=== PATIENT | female | born 1945 | race Caucasian/White ===

== ENCOUNTER 2017-05-30 16:17 | Observation (INO) | payer MEDICARE ==
[~2017-05-30] VITALS: Ht 154.9 cm; Wt 83.5 kg
[2017-05-30] MEDS ORDERED: Ondansetron 2 mg/mL 2 mL Inj IVPUSH PRN (17:50)
[2017-05-30] MEDS ORDERED: Polyethylene Glycol (PEG) 17 Gm Powder PO PRN (17:50)
--- NOTE | 2017-05-30 18:11 | PCM.HPMED ---
Subjective Date of Service May 30, 2017 Primary Provider: Admitting Physician: Ethan Lawrence MD Primary Care Physician: Nonstaff,Doctor Attending Physician: Ethan Lawrence MD Admit Status: Direct Admit, 23-Hour Observation, Remote Telemetry Chief Complaint: Left facial numbness. Resolved. History of Present Illness: This is a 71-year-old female with a history of hypertension who developed left- sided facial numbness this afternoon. This began around 1:30 or 2:00. She then had a feeling of fullness in her chest and head. She had no difficulty with weakness of arms or legs. She had no difficulty with slurred speech or difficulty speaking. No change in vision. She has no history of TIA or stroke. She does have a history of hypertension and does take spironolactone for this. She rarely sees the doctor. She presented to the ER because of this persistent left face numbness. CT of the head was negative for stroke or bleed. There were concerned about the possibility of a TIA, presumably thalamic. The requested transfer by ambulance to [facility] for further evaluation with MRI. 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 She states that this is improved. No history of atrial fibrillation. She smokes cigarettes distantly but none in the last 20 years. She feels like her symptoms have mostly resolved at this point. She was given aspirin in [place] at the emergency department. No difficulty with walking. Review of Systems: She denies any hematuria, or blood in the stools. All else reviewed and otherwise non contributory except as noted in the history of present illness. Home Medications Spironolactone. PMH 1. Essential hypertension 2. Cervical cancer 3. Small bowel obstruction. Surgical History Hysterectomy Family History Hypertension Social History Occupation: Works retail Hx Alcohol Use: No Hx Substance Use: No Hx Tobacco Use: Yes Smoking Status: Former Smoker Living Arrangement: with Family Exam Vital Signs VSS Exam Alert and oriented times 3, fluent speech. Normal skull Normal cranial nerves. No facial droop. No facial numbness. Normal neck, normal nodes. Lungs clear with normal effort and rate Heart regular rate and without murmur. Abdomen soft, non tender. No leg edema No skin rash Normal motor strength in arms and legs, no drift. Normal joints. She has no petechiae or ecchymosis. Lab and Diagnostics Labs pending Assessment & Plan 1. Possible TIA with transient left facial numbness, resolved. Will perform MRI/ MRA brain, ECG, and ECHO with bubble. 2. Essential hypertension, present on admission. Stable. Usual medications and follow clinically. She is admitted observation status, with estimated length of stay of one night. She is full code. Pain Evaluation: Adequate Pain Control Resuscitation Status: CPR: Attempt Resuscitation Time spent 35 minutes Ethan Lawrence MD May 30, 2017 18:11
[2017-05-30 18:24] VITALS: BP 166/106; PULSE 80; RESP 18; O2SAT 98
[2017-05-30] MEDS ORDERED: ESTR1TAB24 PO (18:31)
[2017-05-30] MEDS ORDERED: SPIR25TA3 PO (18:32)
[2017-05-30] MEDS ORDERED: ESTR-14 PO (18:34)
--- NOTE | 2017-05-30 19:19 | NUR ---
Direct admit patient arrived approx 1750 via [facility]. Report received from ED nurse jamaal wilde. New orders per hospitalist. Med Req Done. NOC nurse aware that admit needs to be done. Report given to night nurse. Swallow screen done by RN and pureed honey thick fluids per assessment. Denies any cardiac or respiratory discomfort. last BM this AM. Ambulation up with assist. per neuro assessment slight numbness to left lip able to move all four extremities. stable mood. call light with in reach. Denies any pain or discomfort. no skin issues noted.
[2017-05-30] MEDS: 0.9% Sodium Chloride 1,000 ML IV SCH (20:11)
[2017-05-30] MEDS: Heparin 5,000 Unit/mL Inj SUBQ SCH (20:12)
[2017-05-30 20:25] VITALS: BP 149/88
[2017-05-30 21:45] VITALS: BP 123/69; PULSE 71; RESP 19; O2SAT 99
[2017-05-30 23:49] LABS: APPEARANCE,URINE CLEAR (CLEAR,HAZY); COLOR,URINE YELLOW (YELLOW); OCCULT BLOOD,URINE NEGATIVE (NEGATIVE); UROBILINOGEN,URINE NORMAL (NORMAL)
[2017-05-31] MEDS: Heparin 5,000 Unit/mL Inj SUBQ SCH ×2 (00:30→08:52)
[2017-05-31 02:36] VITALS: BP 128/64; PULSE 67; RESP 17; O2SAT 96
[2017-05-31 05:19] VITALS: PULSE 67
[2017-05-31] MEDS: 0.9% Sodium Chloride 1,000 ML IV SCH (05:36)
[2017-05-31 05:40] VITALS: BP 107/63; PULSE 66; RESP 17; O2SAT 97
[2017-05-31 06:20] LABS: BASOPHILS % (AUTO) 0.2 % (0-3); EOSINOPHILS % (AUTO) 3.3 % (0-5); MONOCYTES % (AUTO) 8.2 % (4-12); Mean Corpuscular Volume 97.8 fL (81-100); NEUTROPHILS % (AUTO) 62.3 % (40-74); Platelet Count 187 bil/L (150-400)
[2017-05-31 08:00] VITALS: PULSE 69
--- NOTE | 2017-05-31 08:25 | DRSVH ---
PROCEDURE: MRI BRAIN WITH AND WITHOUT CONTRAST ([id number]) INDICATIONS: facial numbess TECHNIQUE: Noncontrast axial T1 spin echo, axial T2 fast spin echo, sagittal and axial FLAIR, coronal T2 fast sp in echo, axial gradient echo, axial diffusion and ADC through the brain. After the administration of contrast, axial and coronal 3D VIBE or T1 spin echo with fat saturation through the brain. COMPARISON: None. FINDINGS: Image quality: Excellent. CSF Spaces: Basal cisterns are patent. No extra-axial fluid collections. Ventricles are normal in size and shape. Brain: No midline shift. No intracranial bleeds or masses. No abnormal intracranial enhancement. The brainstem appears normal. Diffusion-weighted images demonstrate no acute ischemic insults. Minim al scattered foci of increased T2 signal in the subcortical and periventricular white matter consiste nt with chronic ischemic change. Normal intravascular flow voids are present. Skull and face: Calvarial marrow is normal in signal. Orbits appear normal. Sinuses: Sinuses and mastoids appear clear. IMPRESSION: 1. No MRI evidence of acute intracranial pathology. 2. There are no discrepancies with the preliminary report. Dictated by: Shane Hurtado M.D. on 05/31/2017 at 8:19 Approved by: Shane Hurtado M.D. on 05/31/2017 at 8:23
[2017-05-31 08:49] VITALS: BP 139/75; PULSE 57; RESP 16; O2SAT 97
--- NOTE | 2017-05-31 13:19 | NUR ---
Evaluation completed. Please go to "Notes" then click on "Assessments and Notes" (bottom left corner of screen). Then select appropriate discipline tab on top of screen.
[2017-05-31 13:34] VITALS: BP 158/80; PULSE 64; RESP 16; O2SAT 96
--- NOTE | 2017-05-31 16:08 | NUR ---
Social Work: Initial Assessment / Multidisciplinary Rounds Data: See initial assessment. Patient is a 71 year old female who was admitted on 05/30/17 for rule out of CVA per H&P. Patient's insurance is Medicare and her PCP is Dr. Ja Lawson. EMR reviewed. SW met with patient to discuss discharge plan. SW role explained. Patient resides with her spouse at [place]. Patient considers her spouse to be her main source of support. Patient denies having a DPOA but confirms that AD have been completed on her behalf. Patient has declined SW offer for DPOA paperwork. Patient confirms that she drives via [place]. Patient denies a hx of home health services or SNF. Patient denies having [place] care insurance or VA benefits. Patient states that upon discharge she will need a ferry pass to return to [place]. Patient states that she was airlifted to [facility]. SW provided patient with a discharge planning checklist booklet and encouraged her to call with any questions or concerns. Phone number provided. Patient was discussed in morning rounds. No concerns were noted by MD or staff. SW will continue to follow for needs. Assessment: Patient will likely discharge home when medically stable. Plan: Patient will likely discharge home when medically stable. Transportation home will be provided by ferry pass. SW will provided pass to patient after MD signature is obtained. SW will follow for needs. LUZ Monterroso Addendum: 05/31/17 at 1621 by LY CRUZ SS Amended: Links added.
--- NOTE | 2017-05-31 16:38 | PCM.DIMED ---
Discharge Instructions Date of Service May 31, 2017 Dates of Hospitalization May 30, 2017 at 18:01 Discharge Diagnosis Discharge Diagnosis 1. Transient left-sided facial numbness of unclear significance, resolved. 2. Essential hypertension, stable. Diet Discharge Diet: No restrictions Activity Discharge Activity: No restrictions Call your provider Call your provider for: Weakness (unilateral), Other (difficulty speaking, moving arms or legs, facial droop.) Patient Instructions Patient Instructions Please see Dr. Lawson within the next week. I would talk to him about doing an echo of your heart if he feels like he wants to pursue that. Ethan Lawrence MD May 31, 2017 16:38
--- NOTE | 2017-05-31 16:47 | PCM.DC.MED ---
Discharge Summary Date of Service May 31, 2017 Dates of Hospitalization Date of Hospital Admission May 30, 2017 at 18:01 Date of Discharge: May 31, 2017 Providers: Admitting Physician: Ethan Lawrence MD Primary Care Physician: Yudith, Attending Physician: Ethan Lawrence MD Diagnosis at Time of Discharge Diagnosis at Time of Discharge 1. Transient left-sided facial numbness of unclear significance, resolved. 2. Essential hypertension, stable. Consultations None Procedures XRay, CTs & MRIs MRI brain is unremarkable. No evidence of acute stroke. Carotid duplex ultrasound reveals a small left ICA plaque but no significant stenosis. Echo with bubble study was not obtainable during the hospitalization. This will be deferred to outpatient basis. Suspicion for TIA is very low and therefore medically I feel it this can be delayed. ECG 12 Lead NSR Invasive Procedures None Brief History This is a 71-year-old female with a history of hypertension who developed left- sided facial numbness this afternoon. This began around 1:30 or 2:00. She then had a feeling of fullness in her chest and head. She had no difficulty with weakness of arms or legs. She had no difficulty with slurred speech or difficulty speaking. No change in vision. She has no history of TIA or stroke. She does have a history of hypertension and does take spironolactone for this. She rarely sees the doctor. She presented to the ER because of this persistent left face numbness. CT of the head was negative for stroke or bleed. There were concerned about the possibility of a TIA, presumably thalamic. The requested transfer by ambulance to [facility] for further evaluation with MRI. 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 She states that this is improved. No history of atrial fibrillation. She smokes cigarettes distantly but none in the last 20 years. She feels like her symptoms have mostly resolved at this point. She was given aspirin in Saturday at the emergency department. No difficulty with walking. Hospital Course 1. Possible TIA with transient left facial numbness, resolved. Will perform MRI/ MRA brain, ECG, and ECHO with bubble. 2. Essential hypertension, present on admission. Stable. Usual medications and follow clinically. She is admitted observation status, with estimated length of stay of one night. She is full code. Hospital course. This patient had transient left facial numbness. She was sent over from Saturday after negative head CT there. An MRI was negative for evidence of stroke. The patient had no symptoms after arrival at [facility]. A 2-D echo could not be obtained due to lack of availability of service on the day of discharge. The patient had a normal carotid duplex ultrasound with the exception of mild left internal carotid artery plaque but no significant stenosis. She had no other neurologic symptoms. She did have a high component of anxiety on the day that her symptoms occurred. The suspicion for TIA was relatively low after history physical and associated studies. She is felt to be stable for discharge home with referral on the need of a 2-D echo with bubble to her primary care doctor, Dr. Lawson Saturday. She will see Dr. Lawson within the next week and continue to take her blood pressure medications. Exam Vital Signs (Last) Date Time Temp Pulse Resp B/P Pulse Ox O2 Delivery O2 Flow Rate FiO2 05/31/17 13:34 36.8 64 16 158/80 96 Room Air Exam The patient was seen and examined on the day of discharge. She was felt to be medically stable for discharge. Test 05/30/17 23:05 05/31/17 05:20 Urine Color Yellow (YELLOW) Urine Appearance Clear (CLEAR,HAZY) Urine pH 6.0 (5.0-8.0) Urine Specific [place] 1.010 (1.003-1.035) Urine Protein Negativemg/dL (NEG,TRACE) Urine Glucose (UA) Negativemg/dL (NEGATIVE) Urine Ketones Negativemg/dL (NEGATIVE) Urine Occult Blood Negative (NEGATIVE) Urine Nitrite Negative (NEGATIVE) Urine Bilirubin Negative (NEGATIVE) Urine Urobilinogen Normalmg/dL (NORMAL) Urine Leukocyte Esterase Negative (NEGATIVE) Urine RBC 0-2/hpf (0-2) Urine WBC 0-5/hpf (0-5) Urine Epithelial Cells Few/hpf (NONE-MOD) Urine Crystals None seen (NONE SEEN) Urine Bacteria Moderate/hpf (NONE-FEW) Urine Hyaline Casts Occasional/lpf (NONE) Urine Granular Casts None seen (NONE SEEN) Urine Waxy Casts None seen (NONE SEEN) Urine Red Blood Cell Casts None seen (NONE SEEN) Urine White Blood Cell Casts None seen (NONE SEEN) Urine Mucus None seen (None Seen) Urine Trichomonas None seen (NONE SEEN) Urine Yeast None (NONE SEEN) Urinalysis Comment None Urine Culture Reflexed Indicated Hold Urine Received (Received) White Blood Count 4.6th/mm3 (3.8-10.1) Red Blood Count 3.72mil/mm3 (3.90-5.20) Hemoglobin 11.9g/dL (12.0-15.6) Hematocrit 36.4% (35.0-46.0) Mean Corpuscular Volume 97.8fL (81-100) Mean Corpuscular Hemoglobin 32.0pg (27.0-35.0) Mean Corpuscular Hemoglobin Concent 32.7% (32.0-37.0) Red Cell Distribution Width 12.7% (12.3-15.4) Platelet Count 187bil/L (150-400) Neutrophils (%) (Auto) 62.3% (40-74) Lymphocytes (%) (Auto) 26.0% (14-46) Monocytes (%) (Auto) 8.2% (4-12) Eosinophils (%) (Auto) 3.3% (0-5) Basophils (%) (Auto) 0.2% (0-3) Sodium Level 143mEq/L (134-144) Potassium Level 4.5mEq/L (3.5-5.2) Chloride Level 104mEq/L (97-108) Carbon Dioxide Level 27mmol/L (18-29) Blood Urea Nitrogen 13mg/dL (8-27) Creatinine 1.43mg/dL (0.57-1.00) Estimat Glomerular Filtration Rate 52mL/min (>59) Glucose Level 101mg/dL (60-99) Calcium Level 9.0mg/dL (8.5-10.1) Total Bilirubin 0.4mg/dL (0.0-1.2) Aspartate Amino Transf (AST/SGOT) 22U/L (0-50) Alanine Aminotransferase (ALT/SGPT) 12U/L (0-32) Alkaline Phosphatase 43U/L (25-165) Total Protein 6.1g/dL (6.4-8.4) Albumin 3.6g/dL (3.4-5.0) Triglycerides Level 127mg/dL (0-149) Cholesterol Level 179mg/dL (100-199) LDL Cholesterol, Calculated 111.600mg/dL (0-99) VLDL Cholesterol 25.400mg/dL HDL Cholesterol 42mg/dL (>39) Cholesterol/HDL Ratio 4.26 (0.0-4.4) Discharge Medications Discharge Medications Estrogen,Candida/Me-Testosterone (Estrogen-Methyltestos H.s. Tab) 1 Each Tablet 1 EACH PO DAILY (Reported) Spironolactone (Spironolactone) 25 Mg Tablet 25 MG PO QPM (Reported) Followup Plan Disposition: Home Discharge Diet: No restrictions Discharge Activity: No restrictions Patient Instructions Please see Dr. Lawson within the next week. I would talk to him about doing an echo of your heart if he feels like he wants to pursue that. Time spent 30 minutes Ethan Lawrence MD May 31, 2017 16:47
--- NOTE | 2017-05-31 17:02 | NUR ---
Social Work: Screening / Discharge EMR reviewed. Patient has been deemed medically stable for discharge today per MD. Patient will return home with significant other. Transportation will be provided by ferry. Due to patient being airlifted to [facility], patient will be provided with a ferry pass. Patient has no additional needs at this time. LUZ Monterroso
--- NOTE | 2017-05-31 17:37 | NUR ---
Discharge Pt. discharged to home at 1710 in stable condition. Pt.s is driving. Pt. walking w/ steady gait. Pt. has ferry pass and all instructions/belongings. Tele and IV dc'd prior to discharge. No questions or concerns at this time.
--- NOTE | 2017-06-02 17:13 | DRSVH ---
PROCEDURE: US BILATERAL DUPLEX DOPPLER IMAGING OF THE CAROTIDS ([id number]) INDICATIONS: facial numbness TECHNIQUE: Color and pulse Doppler interrogation was performed of both carotid systems, with image documentation and velocity measurements. COMPARISON: None. FINDINGS: All stenosis calculations are based on NASCET criteria. Right side: Brachial blood pressure: 139/75 mm Hg. Common Carotid Artery(Distal) PSV: 61.10 cm/s Internal Carotid Artery PSV- Proximal: 65.10 cm/s Mid-lon.40 cm/s Distal: 87.50 cm/s EDV - Proximal: 19.60 cm/s Mid-lon.60 cm/s Distal: 31.40 cm/s External Carotid Artery(Proximal) PSV: 86.40 cm/s ICA/CCA PSV ratio: 1.4 Alvares scale imaging description: Minimal plaque. Percent internal carotid artery stenosis: Less than 50%. Vertebral artery: Flow direction is antegrade. Left side: Brachial blood pressure: 139/75 mm Hg. Common Carotid Artery(Distal) PSV: 76.80 cm/s Internal Carotid Artery PSV - Proximal: 77.40 cm/s Mid-lon.60 cm/s Distal: 93.10 cm/s EDV - Proximal: 21.30 cm/s Mid-lon.40 cm/s Distal: 28.60 cm/s External Carotid Artery(Proximal) PSV: 95.40 cm/s ICA/CCA PSV ratio: 1.2 Alvares scale imaging description: Minimal plaque. Percent internal carotid artery stenosis: Less than 50%.. Vertebral artery: Flow direction is antegrade. IMPRESSION: Less than 50% bilateral internal carotid artery stenosis. Dictated by: Pal HOBSON Interpreted: Elena Francois MD on 05/31/2017 at 12:48 Approved by: Elena Francois M.D. on 06/02/2017 at 17:11
== END 2017-05-31 17:11 | disposition home or self-care (01) ==
LOC: INTOOBSV 18:01 → MPC 18:01
PROVIDERS: ADMIT Hospitalist; ATTEND Hospitalist
DX: R20.0 Anesthesia of skin (principal); G45.9 Transient cerebral ischemic attack, unspecified; I10 Essential (primary) hypertension
CPT/HCPCS: 36415; 70553; 80053; 80061; 81000; 85025; 87086; 87088; 92610; 93005; 93880; 97161; A9585; G0378; G0379; J1644; J7030